=== PATIENT | female | born 1955 | race Caucasian/White ===

== ENCOUNTER 2023-03-23 13:57 | Emergency (ER) | payer BC, OTHER ==
[~2023-03-23] VITALS: Ht 154.9 cm; Wt 122.6 kg
[~2023-03-23 13:57] MED LIST: LEVO125T PO; TRIA75TA66 PO
[2023-03-23 14:12] VITALS: BP 133/77
[2023-03-23] MEDS ORDERED: METH-1182 PO (17:44)
[2023-03-23] MEDS ORDERED: ACET-1080 PO (17:44)
[2023-03-23] MEDS ORDERED: ACETAMINOPHEN 500 MG TAB PO ONE (17:45)
== END 2023-03-23 17:54 | disposition home or self-care (01) ==
LOC: ER 13:57
DX: S30.0XXA Contusion of lower back and pelvis, initial encounter (principal); M19.011 Primary osteoarthritis, right shoulder; M75.31 Calcific tendinitis of right shoulder; I10 Essential (primary) hypertension; E78.5 Hyperlipidemia, unspecified; Z88.6 Allergy status to analgesic agent; W19.XXXA Unspecified fall, initial encounter; Y93.89 Activity, other specified; Y92.89 Other specified places as the place of occurrence of the external cause; Y99.8 Other external cause status
CPT/HCPCS: 72192; 73030